=== PATIENT | female | born 1980 | race Caucasian/White ===

== ENCOUNTER 2017-07-21 03:28 | Emergency (ER) | payer MEDICAID ==
[~2017-07-21] VITALS: Ht 149.9 cm; Wt 79.0 kg
[~2017-07-21 03:28] MED LIST: PREN-15 PO
[2017-07-21 03:37] VITALS: Ht 149.9 cm; Wt 79.0 kg
--- NOTE | 2017-07-21 04:25 | ERD ---
ER Documentation Chief Complaint Date/Time DATE: 07/21/17 TIME: 03:57 Chief Complaint swelling both legs/back pain x 2 weeks, 5 weeks HPI 36-year-old female presents emergency department for bilateral lower extremity swelling for 2 weeks. She is 5 weeks . LMP: 06/12/2017. DANIAL 04/18/2018. A1 M1. Denies headache, dizziness, blurry vision, neck pain, shoulder pain, chest pain , nausea, vomiting, abdominal pain, pelvic pain, back pain, back cramping, pelvic cramping, urinary symptoms, direct trauma, injury, falls, fever, chills. No known drug allergies. No past medical history. No surgical history. Medication: vitamins. Social: Not working this time. Quit smoking cigarettes last week. Denies smoking, use of illegal drugs. ROS All systems reviewed and are negative except as per history of present illness. Medications Home Meds Active Scripts Vit W-Ca,Fe,FA(<1 mg) ( Vitamins) 1 Each Tablet, 1 EACH PO DAILY, #30 TAB Prov:RYANNELEROY URIARTE 07/21/17 Discontinued Reported Medications Vit/Fe Fumarate/Fa (Prenafirst Tablet) 1 Tab Tablet, 1 TAB PO 09/20/12 Allergies Allergies: Coded Allergies: No Known Drug Allergy (Verified Allergy, Unknown, 07/21/17) PMhx/Soc History of Surgery: Yes (C SECTION, CHOLEY) Anesthesia Reaction: No Hx Neurological Disorder: No Hx Respiratory Disorders: No Hx Cardiac Disorders: No Hx Psychiatric Problems: No Hx Miscellaneous Medical Probl: No Hx Alcohol Use: No Hx Substance Use: No Hx Tobacco Use: No Smoking Status: Never smoker Physical Exam Vitals Vital Signs Date Time Temp Pulse Resp B/P Pulse Ox O2 Delivery O2 Flow Rate FiO2 07/21/17 05:03 66 20 107/78 100 07/21/17 03:37 98.4 84 20 107/78 100 Physical Exam Const: [] Head: Atraumatic Eyes: Normal Conjunctiva ENT: Normal External Ears, Nose and Mouth. Neck: Full range of motion..~ No meningismus. Resp: Clear to auscultation bilaterally Cardio: Regular rate and rhythm, no murmurs Abd: Soft, non tender, non distended. Normal bowel sounds Skin: No petechiae or rashes Back: No midline or flank tenderness Ext: No cyanosis. Lower extremity nonpitting edema. No neurovascular deficit. No signs of trauma. Neur: Awake and alert Psych: Normal Mood and Affect Results 24 hrs Laboratory Tests Test 07/21/17 04:05 Urine Color YELLOW Urine Clarity CLEAR Urine pH 6.0 Urine Specific [place] 1.026 Urine Ketones NEGATIVEmg/dL Urine Nitrite NEGATIVEmg/dL Urine Bilirubin NEGATIVEmg/dL Urine Urobilinogen NEGATIVEmg/dL Urine Leukocyte Esterase NEGATIVELeu/ul Urine Hemoglobin NEGATIVEmg/dL Urine Glucose NEGATIVEmg/dL Urine Total Protein NEGATIVEmg/dl Current Medications Medications (Trade) Dose Ordered Sig/Peg Route PRN Reason Start Time Stop Time Status Last Admin Dose Admin Acetaminophen (Tylenol Tab) 650 mg ONCE ONCE PO 07/21/17 05:00 07/21/17 05:01 DC 07/21/17 05:04 Procedures/MDM 36-year-old female presents emergency department for bilateral lower extremity swelling for 2 weeks. She is 5 weeks . LMP: 06/12/2017. DANIAL 04/18/2018. A1 M1. Denies headache, dizziness, blurry vision, neck pain, shoulder pain, chest pain , nausea, vomiting, abdominal pain, pelvic pain, back pain, back cramping, pelvic cramping, urinary symptoms, direct trauma, injury, falls, fever, chills. No known drug allergies. No past medical history. No surgical history. Medication: vitamins. Social: Not working this time. Quit smoking cigarettes last week. Denies smoking, use of illegal drugs. Physical exam: Bilateral lower extremity nonpitting edema. Disease process was explained to the patient. Explained to her that these symptoms are normal for . She verbalized understanding and agreed with the plan of care. Case was discussed with supervising physician, Dr. Emery Al who agreed in my medical decision making. POC urine : Positive. Urinalysis: Negative. Treatment: Tylenol. Reevaluation: Denies headache, dizziness, blurred vision, neck pain, shoulder pain, chest pain, back pain, abdominal pain, abdominal cramping, pelvic cramping , back cramping, numbness or tingling sensation. No episode of emesis in the emergency department. No neurovascular deficit. Lung sounds are clear to auscultation. Her bilateral lower extremity nonpitting edema has decreased after elevation. Case was discussed with supervising physician, Dr. Emery Al who agreed in my medical decision making to discharge the patient and have her follow-up with her OB in the next 24-48 hours and have her come back here in the emergency department if she feels that her symptoms get worse. Differential diagnosis: Normal signs of . Final diagnosis: Normal signs of . Prescription: vitamins. Follow-up with OB in the next 24-48 hours. Come back to emergency department for any new symptoms or any worsening of symptoms. All questions and concerns are answered. Patient verbalized understanding and agreed with the plan of care. Hemodynamically stable on discharge. Departure Diagnosis: Primary Impression: Condition: Stable Additional Instructions: Follow-up with OB in the next 24-48 hours. Come back to emergency department for any new symptoms or any worsening of symptoms. All questions and concerns are answered. Patient verbalized understanding and agreed with the plan of care. LEROY DARDEN Jul 21, 2017 04:25
[2017-07-21 04:35] LABS: ADD UMIC NO; UR ASCORBIC ACID 40 mg/dL (NEGATIVE); UR BILIRUBIN (Dip) NEGATIVE (NEGATIVE); UR BLOOD (Dip) NEGATIVE (NEGATIVE); UR CLARITY CLEAR (CLEAR); UR COLOR YELLOW (YELLOW); UR GLUCOSE (Dip) NEGATIVE (NEGATIVE); UR KETONES (Dip) NEGATIVE (NEGATIVE); UR LEUKOCYTE ESTERASE (Dip) NEGATIVE Leu/ul (NEGATIVE); UR NITRITE (Dip) NEGATIVE (NEGATIVE); UR SPECIFIC GRAVITY (Dip) 1.026 (1.003-1.030); UR TOTAL PROTEIN (Dip) NEGATIVE (NEGATIVE); UR UROBILINOGEN (Dip) NEGATIVE (NEGATIVE)
[2017-07-21] MEDS ORDERED: PREN1TAB79 PO (04:46)
[2017-07-21] MEDS ORDERED: ACETAMINOPHEN 325 MG TAB PO ONE (05:00)
[2017-07-21 05:03] VITALS: BP 107/78; PULSE 66; RESP 20
== END 2017-07-21 05:04 | disposition home or self-care (01) ==
LOC: FTE 03:28
DX: O99.89 Other specified diseases and conditions complicating pregnancy, childbirth and the puerperium (principal); M79.89 Other specified soft tissue disorders; M54.9 Dorsalgia, unspecified; Z3A.01 Less than 8 weeks gestation of pregnancy
CPT/HCPCS: 81003; Z7502; Z7610; 99283

== ENCOUNTER 2019-05-25 18:58 | Emergency (ER) | payer MEDICAID ==
[~2019-05-25] VITALS: Ht 160 cm; Wt 72.7 kg
[~2019-05-25 18:58] MED LIST changes: +HYDR-3980 PO; +HYDR-843 PO; +IBUP800T48 PO; +METH500T PO; -PREN-15 PO; +PREN1TAB79 PO
[2019-05-25 19:00] VITALS: Ht 160 cm; Wt 72.7 kg
[2019-05-25] MEDS ORDERED: KETOROLAC 30 MG INJ IM STA (20:05)
[2019-05-25] MEDS ORDERED: LORAZEPAM 2 MG INJ IM ONE (20:30)
[2019-05-25 21:19] VITALS: BP 130/86; PULSE 72; RESP 20
== END 2019-05-25 21:21 | disposition home or self-care (01) ==
LOC: FTE 18:58
DX: F41.9 Anxiety disorder, unspecified (principal)
CPT/HCPCS: 81003; 81025; J1885; J2060; 96372